=== PATIENT | female | born 1950 | race Caucasian/White ===

== ENCOUNTER 2025-08-13 07:45 | Inpatient (IN) ==
--- NOTE | 2025-07-23 15:41 | Anesthesiology Consultation ---
Date of Service July 23, 2025 Assessment & Plan (1) Encounter for pre-operative examination: - Infectious disease screening: Per assessment on 07/23/25- No known recent infectious disease contacts or current infectious disease symptoms. - Acceptable risk for surgery pending surgeon-ordered PCP preop evaluation ([facility]/naa Aguilart 07/28). Chart Review Chart Review: Patient NOT seen in Pre Admission Testing History Surgery Operation Date: 08/13/25 09:10 Proposed Procedures p Robotic Partial Colectomy, Possible Open Partial Colectomy - Antonio Naidu, , FACS Height/Weight Height: 5 ft 2.5 in Weight: 106.594 kg Allergies Allergy/AdvReac Type Severity Reaction Status Date / Time amoxicillin Allergy Mild Hives Verified 07/23/25 08:28 azithromycin Allergy Mild Hives Verified 07/23/25 08:28 benzonatate Allergy Mild Vomiting Verified 07/23/25 08:28 cefadroxil [From Duricef] Allergy Mild Hives Verified 07/23/25 08:28 cefazolin [From Ancef] Allergy Mild Hives Verified 07/23/25 08:28 diclofenac [From Cataflam] Allergy Mild Hives Verified 07/23/25 08:28 famotidine Allergy Mild Hypertensio Verified 07/23/25 08:28 n lactose Allergy Mild Diarrhea Verified 07/23/25 08:28 meperidine [From Demerol] Allergy Mild Hives Verified 07/23/25 08:28 sufentanil [From Sufenta] Allergy Mild Hives Verified 07/23/25 08:28 sulfamethoxazole Allergy Mild Hives Verified 07/23/25 08:28 [From Septra] trimethoprim [From Septra] Allergy Mild Hives Verified 07/23/25 08:28 wheat Allergy Mild Diarrhea Verified 07/23/25 08:28 brianna Allergy Mild Diarrhea Uncoded 07/23/25 08:28 ivp dye Allergy Mild Hives Uncoded 07/23/25 08:28 peteracillin Allergy Mild Hives Uncoded 07/23/25 08:28 Medications Home Medications Medication Instructions Recorded Confirmed Last Taken amlodipine 10 mg tablet 10 mg PO HS 07/22/25 07/23/25 Unknown cholecalciferol (vitamin D3) 50 50 mcg PO QAM 07/22/25 07/23/25 Unknown mcg (2,000 unit) capsule cinnamon bark 500 mg capsule 500 mg PO QAM 07/22/25 07/23/25 Unknown (Cinnamon) cyanocobalamin (vitamin B-12) 1,000 mcg PO QAM 07/22/25 07/23/25 Unknown 1,000 mcg tablet lisinopril 40 mg tablet 40 mg PO QAM 07/22/25 07/23/25 Unknown lutein 10 mg tablet 10 mg PO QPM 07/22/25 07/23/25 Unknown metronidazole 500 mg tablet 500 mg PO ONCE #3 tabs 07/22/25 Unknown multivitamin 1 tab PO DAILY 07/22/25 07/23/25 Unknown neomycin 500 mg tablet 500 mg PO ONCE #3 tabs 07/22/25 Unknown niacin 500 mg tablet 500 mg PO QAM 07/22/25 07/23/25 Unknown pantoprazole 40 mg tablet,delayed 40 mg PO QAM 07/22/25 07/23/25 Unknown release (Protonix) propranolol 20 mg tablet 20 mg PO QPM 07/22/25 07/23/25 Unknown zinc gluconate 30 mg tablet 30 mg PO QAM 07/22/25 07/23/25 Unknown Past Medical History Medical History Abnormality of testosterone Pt states previously high and had treatments x2 (~2019) Acid reflux Adenocarcinoma of cecum Recently colonoscopy 06/2025 ([facility]) Allergic sinusitis Anxiety Chronic back pain Fatty liver disease, nonalcoholic Hiatal hernia History of pneumonia (2019) After thyroid surgery complications HLD (hyperlipidemia) HTN (hypertension) Hx of deep venous thrombosis (2019) After thyroid surgery ([facility]) IVC filter placed/subsequently removed Hx pulmonary embolism (2019) After thyroid surgery ([facility]) IVC filter placed/subsequently removed Lipoma Below right knee Sleep disorder "sleep more than normal" Past Family History Family History Father Cancer Colorectal cancer Brother Clotting disorder Mother Hypertension Heart disease Past Surgical History Surgical History H/O section 1971, 1973 H/O colonoscopy (06/2025) [facility] H/O partial thyroidectomy (~2019) Left side (had thyroid nodules) Complications after surgery due to bleeding/hematoma- states she had to be intubated x 24 hours and had to go back to surgery to control bleeding, later had DVT/PE and had IVC Filter placed- states she had to be on oxygen x 6 months after the surgery H/O vein stripping (1989) Right leg History of anesthesia reaction Reports she was told after hyster that she was a "shallow breather" History of back surgery (1992) L4-L5 History of cataract surgery (2023) R/L History of postoperative nausea and vomiting Hx of hysterectomy (2022) S/P IVC filter (2019) [place] filter placed and removed ~6 months later S/P laparoscopic cholecystectomy (2010) Status post tubal ligation Social History Smoking Status: Never smoker Do You Dip or Chew Tobacco: No Hx Alcohol Use: Yes Alcohol type: beer and wine alcohol intake frequency: a few times a week Hx Substance Use: No substance use type: does not use Testing Laboratory Results 07/14/25 WBC 5.68 H/H 154/45.9 PLATELETS 195 SODIUM 140 POTASSIUM 4.0 CHLORIDE 107 CO2 31.0 BUN 14.0 CREATININE 0.91 GLUCOSE 101 Electrocardiogram Date: 07/14/25 SR at 65bpm. Septal myocardial infarction, probably old. Chest X-Ray Date: 07/14/25 The heart is borderline enlarged. Atherosclerotic and mildly tortuous thoracic aorta. Probable torturous vessel in the right paratracheal region. Mild partial eventration of the right hemidiaphragm. No consolidation or pleural effusion. Cholecystectomy. Impression: No acute findings.
--- NOTE | 2025-08-12 11:50 | History & Physical Report ---
Date of Service August 12, 2025 Assessment & Plan (1) Adenocarcinoma of cecum: Plan: Newly diagnosed adenocarcinoma of the cecum. Plan for robotic partial hemicolectomy, possible open Risks of the procedure were discussed to include but not limited to bleeding, in fection, open surgery, anastomotic leak, damage to surrounding structures, need for future more extensive surgery, failure to treat symptoms, and risk of anesthesia Preop risk assessment from PCP complete (2) Abdominal pain: (3) Hx of deep venous thrombosis: (4) Hx pulmonary embolism: (5) HTN (hypertension): (6) HLD (hyperlipidemia): (7) S/P IVC filter: (8) S/P laparoscopic cholecystectomy: (9) H/O section: (10) Hx of hysterectomy: History of Present Illness Chief Complaint: Colon cancer Primary Care Provider: Danisha Crenshaw Here for surgery. 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 She has been having right lower quadrant pain over the past few years. During the process she had imaging performed and showed a enlarged uterus and underwent hysterectomy and salpingo-oophorectomy. She states that there was 2 tiny cancerous cells, but did not require any further treatment. She continued to have the symptoms. She underwent a colonoscopy for the first time in a little over 10 years at [facility] and was noted to have an ulcerating tumor in her cecum. Biopsies were taken and revealed invasive adenocarcinoma. Besides the laparoscopic assisted hysterectomy, she has had a laparoscopic cholecystectomy, and 2 C-sections, no other abdominal surgeries. She has had a partial thyroidectomy. She does not follow with a sand mixer machine and is not on any blood thinners currently. She did have 2 small pulmonary emboli after her thyroid surgery and was on Coumadin for a period. She also had a [place] filter that was later removed. She does not note any changes in her bowel habits or blood in her stool. She does have frequent loose stools, usually related to gluten intake or dairy. Her pain appears more positional. Preop risk assessment from PCP completed. She had a CT scan of the chest ab domen pelvis which showed cecal thickening and some lymphadenopathy but no evidence of obvious metastatic disease. Her CEA was 2.52, slightly elevated. No other changes since last visit. Allergies Allergy/AdvReac Type Severity Reaction Status Date / Time amoxicillin Allergy Mild Hives Verified 07/23/25 08:28 azithromycin Allergy Mild Hives Verified 07/23/25 08:28 benzonatate Allergy Mild Vomiting Verified 07/23/25 08:28 cefadroxil [From Duricef] Allergy Mild Hives Verified 07/23/25 08:28 cefazolin [From Ancef] Allergy Mild Hives Verified 07/23/25 08:28 diclofenac [From Cataflam] Allergy Mild Hives Verified 07/23/25 08:28 famotidine Allergy Mild Hypertensio Verified 07/23/25 08:28 n lactose Allergy Mild Diarrhea Verified 07/23/25 08:28 meperidine [From Demerol] Allergy Mild Hives Verified 07/23/25 08:28 sufentanil [From Sufenta] Allergy Mild Hives Verified 07/23/25 08:28 sulfamethoxazole Allergy Mild Hives Verified 07/23/25 08:28 [From Septra] trimethoprim [From Septra] Allergy Mild Hives Verified 07/23/25 08:28 wheat Allergy Mild Diarrhea Verified 07/23/25 08:28 brianna Allergy Mild Diarrhea Uncoded 07/23/25 08:28 ivp dye Allergy Mild Hives Uncoded 07/23/25 08:28 peteracillin Allergy Mild Hives Uncoded 07/23/25 08:28 Home Medications Medication Instructions Recorded Confirmed Type amlodipine 10 mg tablet 10 mg PO HS 07/22/25 07/23/25 History cholecalciferol (vitamin D3) 50 50 mcg PO QAM 07/22/25 07/23/25 History mcg (2,000 unit) capsule cinnamon bark 500 mg capsule 500 mg PO QAM 07/22/25 07/23/25 History (Cinnamon) cyanocobalamin (vitamin B-12) 1,000 mcg PO QAM 07/22/25 07/23/25 History 1,000 mcg tablet lisinopril 40 mg tablet 40 mg PO QAM 07/22/25 07/23/25 History lutein 10 mg tablet 10 mg PO QPM 07/22/25 07/23/25 History metronidazole 500 mg tablet 500 mg PO ONCE #3 tabs 07/22/25 Rx multivitamin 1 tab PO DAILY 07/22/25 07/23/25 History neomycin 500 mg tablet 500 mg PO ONCE #3 tabs 07/22/25 Rx niacin 500 mg tablet 500 mg PO QAM 07/22/25 07/23/25 History pantoprazole 40 mg tablet,delayed 40 mg PO QAM 07/22/25 07/23/25 History release (Protonix) propranolol 20 mg tablet 20 mg PO QPM 07/22/25 07/23/25 History zinc gluconate 30 mg tablet 30 mg PO QAM 07/22/25 07/23/25 History Past Med/Surg History Problem List Encounter for pre-operative examination Adenocarcinoma of cecum Acid reflux Diarrhea Abdominal pain Vitamin D deficiency Medical History Abnormality of testosterone Pt states previously high and had treatments x2 (~2019) Acid reflux Adenocarcinoma of cecum Recently colonoscopy 06/2025 ([facility]) Allergic sinusitis Anxiety Chronic back pain Fatty liver disease, nonalcoholic Hiatal hernia History of pneumonia (2019) After thyroid surgery complications HLD (hyperlipidemia) HTN (hypertension) Hx of deep venous thrombosis (2019) After thyroid surgery ([facility]) IVC filter placed/subsequently removed Hx pulmonary embolism (2019) After thyroid surgery ([facility]) IVC filter placed/subsequently removed Lipoma Below right knee Sleep disorder "sleep more than normal" Surgical History H/O section 1971, 1973 H/O colonoscopy (06/2025) [facility] H/O partial thyroidectomy (~2019) Left side (had thyroid nodules) Complications after surgery due to bleeding/hematoma- states she had to be intubated x 24 hours and had to go back to surgery to control bleeding, later had DVT/PE and had IVC Filter placed- states she had to be on oxygen x 6 months after the surgery H/O vein stripping (1989) Right leg History of anesthesia reaction Reports she was told after hyster that she was a "shallow breather" History of back surgery (1992) L4-L5 History of cataract surgery (2023) R/L History of postoperative nausea and vomiting Hx of hysterectomy (2022) S/P IVC filter (2019) [place] filter placed and removed ~6 months later S/P laparoscopic cholecystectomy (2010) Status post tubal ligation Family History Father Cancer Colorectal cancer Brother Clotting disorder Mother Hypertension Heart disease Social History (Updated 07/07/25 @ 11:41 by Carol Alegre RN) Smoking Status: Never smoker Second Hand Exposure: No; Do You Dip or Chew Tobacco: No; Tobacco Cessation Education Requested by Patient: No Hx Alcohol Use: Yes Alcohol type: beer and wine Alcohol Intake Frequency: 2-4 x/Month Hx Substance Use: No Preferred Language: Lithuanian Communication Ability: Effective Wood Fence Installer Required: No Beliefs That Will Affect Care: None marital status: Current Living Situation: Spouse current occupational status: retired How many Children do You have: 2 Other Information That Helps Us Care for You: No Feels Safe at Home: Yes Safety Concerns: Feels Safe At This Time Diet: gluten free during the past year weight has: remained stable Assistive Devices: None Review of Systems Review of Systems: All systems reviewed & are unremarkable except as noted in HPI & below Physical Exam Constitutional: WD/WN, vitals as above + morbidly obese Respiratory: normal respiratory effort, lungs clear to auscultation Cardiovascular: RRR, no murmur, no edema Gastrointestinal (Abdomen): normal bowel sounds, soft, nontender, no hepatosplenomegaly Inspection/Auscultation: + abdominal surgical scar (Low vertical midline, port site scars) Results & Data Results & Data Laboratory Results Pathology showed invasive adenocarcinoma Diagnostic Findings CT report showed new asymmetric circumferential mural thickening of the cecum with mild Riki colic fat stranding and adjacent lymphadenopathy, no obvious metastatic disease. PG Care Time/CCT Total # of Minutes Spent Total Time Spent with Patient: Total time spent is greater than 50% in coordination of care (as documented) at patient's floor/unit and/or counseling patient: Coding Level of Care Code None Diagnoses Adenocarcinoma of cecum C18.0 Abdominal pain R10.9 Hx of deep venous thrombosis Z86.718 Hx pulmonary embolism Z86.711 HTN (hypertension) I10 HLD (hyperlipidemia) E78.5 S/P IVC filter Z95.828 S/P laparoscopic cholecystectomy Z90.49 H/O section Z98.891 Hx of hysterectomy Z90.710
[~2025-08-13 07:45] MED LIST: General Order Problem(s) SCH
[2025-08-13] MEDS: metroNIDAZOLE 500 MG/100 ML BAG IV SCH ×2 (08:11→20:45)
[2025-08-13] MEDS: LR 15ML/HR IV SCH (08:11)
[2025-08-13] MEDS ORDERED: ROCURONIUM BROMIDE 10 MG/ML 5 ML VIAL IV ONE ×2 (08:33→12:08)
[2025-08-13] MEDS ORDERED: PROPOFOL IV EMULSION 10 MG/ML 20 ML VIAL IV ONE (08:33)
[2025-08-13] MEDS ORDERED: LIDOCAINE 2% 2 ML VIAL/AMP(20MG/ML) INFIL ONE (08:33)
[2025-08-13] MEDS ORDERED: MIDAZOLAM HCL 1 MG/ML 2ML VIAL ONE (08:34)
[2025-08-13] MEDS ORDERED: KETAMINE HCL 10MG/ML SYR ONE (08:37)
[2025-08-13] MEDS ORDERED: diphenhydrAMINE 50 MG/ML VIAL ONE (08:38)
[2025-08-13] MEDS ORDERED: ONDANSETRON INJ 2 MG/ML 2 ML VIAL IV PRN (08:40)
[2025-08-13] MEDS ORDERED: PROMETHAZINE HCL 6.25 MG in SODIUM CHLORIDE 0.9% 50 ML IV PRN (08:40)
[2025-08-13] MEDS ORDERED: HYDROmorphone INJ 1 MG/ML SYRINGE IV PRN (08:40)
[2025-08-13] MEDS ORDERED: ATROPINE SULFATE 0.1 MG/ML 10ML SYR IV PRN (08:40)
[2025-08-13] MEDS ORDERED: SUGAMMADEX SODIUM 200 MG/2 ML VIAL IV ONE ×3 (08:46→12:55)
--- NOTE | 2025-08-13 09:10 | History & Physical Bridge Note ---
Date of Service August 13, 2025 History & Physical Bridge Note I have examined the patient, reviewed the History & Physical and in the interval since the performance of the History & Physical I have noted the following changes of clinical significance: no changes noted
[2025-08-13] MEDS ORDERED: ACETAMINOPHEN 1000 MG/100 ML IV IV ONE (09:35)
[2025-08-13] MEDS: CIPROFLOXACIN / D5W 400 MG/200 ML BAG IV SCH ×2 (09:42→22:15)
[2025-08-13] MEDS ORDERED: DEXAMETHASONE SOD INJ 4 MG/ML VIAL ONE (10:14)
[2025-08-13] MEDS ORDERED: ONDANSETRON INJ 2 MG/ML 2 ML VIAL ONE (10:36)
[2025-08-13] MEDS ORDERED: GLYCOPYRROLATE 0.2 MG/ML VIAL ONE (10:36)
[2025-08-13] MEDS ORDERED: HYDROmorphone INJ 2 MG/ML SYR/VIAL ONE (11:00)
[2025-08-13] MEDS ORDERED: LABETALOL HCL IV 5 MG/ML 20ML IV ONE (11:42)
[2025-08-13] MEDS: INDOCYANINE GREEN 25 MG VIAL INJ ONE (13:48)
[2025-08-13] MEDS ORDERED: KETOROLAC 30 MG/ML VIAL ONE (14:00)
[2025-08-13] MEDS: BUPIVACAINE LIPOSOME 1.3% 266 MG/20 ML VIAL ONE (14:04)
[2025-08-13] MEDS: BUPIVACAINE 0.5 % 5 MG/1 ML MPF 30ML VIAL ONE (14:05)
--- NOTE | 2025-08-13 14:08 | Post Operative Brief Note ---
PG Immediate Post Op with CF Date of Surgery August 13, 2025 Pre & Post Diagnosis Operation Date: 08/13/25 09:10 Pre-Op Diagnosis: Cecal Adenocarcinoma Post-Op Diagnosis: Cecal Adenocarcinoma I identified the patient and participated in the time-out.: Yes Procedure Operation Date: 08/13/25 09:10 Actual Procedures p Robotic Assisted Laparoscopic Right Hemicolectomy(Not Applicable) - Antonio Naidu DO, FACS Surgeon Antonio Naidu DO, RAGHU Hockey Instructor Ric Toro Estimated Blood Loss 25 Findings Consistent with Post-Op Diagnosis Palpable cecal adenocarcinoma. Bulky lymphadenopathy. Robotic right hemicolectomy with lateral to medial dissection performed. High ligation of ileocolic vascular bundle, right colic identified and divided with vessel sealer. Intracorporeal anastomosis performed. Exparel injected. Specimens Specimen Description: A. Right Hemicolectomy Drains Hardwick Catheter Anesthesia Type General Complications none Disposition Accompanied Patient To Recovery: No Disposition: Recovery Room
--- NOTE | 2025-08-13 14:45 | Cancer Operative Report ---
Post Operative Report Pre & Post Diagnosis Operation Date: 08/13/25 09:10 Pre-Op Diagnosis: Cecal Adenocarcinoma Post-Op Diagnosis: Cecal Adenocarcinoma I identified the patient and participated in the time-out.: Yes Procedure Operation Date: 08/13/25 09:10 Actual Procedures p Robotic Assisted Laparoscopic Right Hemicolectomy(Not Applicable) - Antonio Naidu DO, RAGHU Surgeon Antonio Naidu DO, RAGHU Web Offset Press Feeder Ric Toro Estimated Blood Loss 25 Findings Consistent with Post-Op Diagnosis Palpable cecal adenocarcinoma. Bulky lymphadenopathy. Robotic right hemicolectomy with lateral to medial dissection performed. High ligation of ileocolic vascular bundle, right colic identified and divided with vessel sealer. Intracorporeal anastomosis performed. Leak test negative. Good perfusion with ICG. Exparel injected. Specimens Right hemicolectomy Drains Hardwick catheter Anesthesia Type General Complications none Disposition Accompanied Patient To Recovery: No Disposition: Recovery Room Indications 74-year-old female with ulcerating tumor of her cecum on colonoscopy, pathology results showed adenocarcinoma. CT scan with some lymphadenopathy but no obvious metastatic disease. Plan for robotic partial colectomy, possible open. The risks of the procedure were discussed, all questions were answered, and the patient agreed to proceed with surgery as planned. Description of Procedure The patient had an antibiotic infused bowel prep overnight. The patient was pro perly identified, consented, and taken to the operating room where she was placed in the supine position. General endotracheal anesthesia was induced. SCDs and a safety belt were placed. Preoperative antibiotics were administered. A Hardwick catheter and an OG tube were placed. The patient's abdomen was prepped and draped in the standard sterile fashion. Surgical timeout was performed and all parties were in agreement that this was the correct patient and procedure to be performed and we continued as planned. An incision was made just above the umbilicus and to the left of midline. Veress needle was inserted and saline drop test confirmed entry to the abdomen. The abdomen was insufflated with carbon dioxide which the patient tolerated incident. Veress needle was removed and the abdomen was entered using the Optiview technique and a 5 mm camera. The introducer was removed and the abdomen inspected. No damage from initial trocar placement or Veress needle placement was identified. There were no significant abnormalities to the 4 quadrants of the abdomen. 8 mm robotic ports were then placed in the right lower quadrant and in the left upper quadrant, and a 12 mm port was placed in the left upper quadrant. An additional 5 mm hotel assistant manager port was placed in the left lower quadrant. The patient was placed in Trendelenburg position and rotated towards the left. The small bowel was swept away from the right lower quadrant. The robot was then docked and the camera and robotic instruments were inserted. The abdomen was inspected and there was no evidence of metastatic disease. The cecum was grasped and was quite firm and there was a palpable tumor at the base of the cecum. There was also foreshortened mesentery and some bulky lymphadenopathy along the ileocolic pedicle. This prevented us performing a medial to lateral dissection, so I then performed a lateral to medial dissection. The cecum was retracted medially and the white line of Toldt was taken down utilizing the vessel sealer device and blunt dissection. The hepatic flexure was mobilized. The terminal ileum was also mobilized off the lateral abdominal attachments. In the area of the tumor there was some inflammation and required more extensive dissection to free the tumor from its retroperitoneal attachments, but there was no gross invasion of the retroperitoneal structures. Multiple bulky lymph nodes were identified during this portion of the procedure. Once the colon was completely medialized and reached across the midline, we then returned to identify the ileocolic pedicle. The peritoneum was scored overlying this and the ileocolic vascular pedicle was isolated. High ligation of the ileocolic vessels was then performed using a white loaded robotic stapler. Hemostasis was excellent. I then proceeded to continue with the dissection of the mesentery utilizing the robotic vessel sealer. The right colic was somewhat small but was identified and divided with the vessel sealer. Hemostasis was good. I continued the dissection to the proximal transverse colon and to portion of the distal ileum. A blue loaded 60 mm robotic stapler was then utilized to divide the ileum 10 cm from the ileocolic valve. It was then used to divide the proximal transverse colon. The specimen was then placed in the left lower quadrant of the abdomen. ICG was then injected and the staple lines were inspected. There was a small corner of the colon staple line that appeared to lack adequate blood flow. This was then resected with an additional firing of the 60 mm blue loaded robotic stapler. A [id number] functional end and intracorporeal ileocolic anastomosis was then performed. Enterotomies were made in the small bowel and in the colon along the antimesenteric border approximately 8 cm from the staple lines. A blue loaded 60 mm robotic stapler was then inserted into the enterotomy and colotomy and fired towards the staple line creating the anastomosis. An additional 45 mm s tapler was then fired to lengthen the anastomosis. The common enterotomy was then closed. Stay sutures of 3-0 Vicryl suture were placed on the lateral corners to aid in retraction. A 2-0 absorbable V-Loc suture was then run in a simple running fashion to close the common enterotomy. This was then run back on itself with a running Lembert suture to provide the second layer. The anastomosis was palpated and appeared to be patent. ICG was again injected and the anastomosis appeared to have excellent blood flow. The anastomosis was then submerged under saline and no leak was identified. The right lower quadrant and right upper quadrant were irrigated and hemostasis appeared excellent. The mesenteric defect was not closed. The specimen was grasped through the hotel assistant manager port. Robotic surgery was ceased and the robot was undocked. The abdomen was allowed to collapse. The 12 mm port site was extended for several centimeters. An Bran wound protector was placed into the wound. The specimen was then grasped with a [place] and removed through the wound protector. The fascia and skin had to be extended for a few more centimeters to accommodate the large tumor and bulky adenopathy. The tumor was removed and passed off the table as specimen labeled right hemicolectomy. The Bran wound protector was removed and the fascia was closed using a #0 looped PDS suture. The wound was irrigated and hemostasis achieved. The fascia and incision site was injected with Exparel mixed with 0.5% Marcaine. The extraction site wound was irrigated and the incision was then closed with interrupted 3-0 Vicryl deep dermal sutures followed by 4-0 Monocryl running subcuticular suture. The remaining port sites were closed with 4-0 Monocryl deep dermal sutures. Dermabond was placed over the incisions. The Hardwick catheter was left in place and the OG tube was removed. The patient was extubated in the operating room and taken to the PACU where she recovered without apparent incident. All sponge, instrument, and needle counts were correct. The patient tolerated the procedure well. The colon specimen was sent to Pathology. The physician's hotel assistant manager was present and scrubbed for the entirety of the case. He was critical in positioning the patient, prepping and draping, retraction and exposure, exchange and placement of the robotic instruments, driving the laparoscope, resection of the specimen and creation of the anastomosis, closure of the incisions, and placement of the dressings. Colon Resection Operation performed with curative intent: Yes Tumor Location: Cecum Extent of colon and vascular resection: Right hemicolectomy ileocolic, R colic (if present) I attest to the content of the Intraoperative Record and any orders documented therein. Any exceptions are noted below.
[2025-08-13] MEDS ORDERED: MoRPHine SULFATE 4 MG/ML 1 ML CARP\\VIAL IV PRN (16:16)
--- NOTE | 2025-08-13 16:16 | Anesthesiology Progress Note ---
Date of Service August 13, 2025 Anesthesia Post Procedure Vital Signs Vital Signs: Temp Pulse Pulse Pulse Resp BP Pulse Ox 08/13/25 15:48 80 20 97 08/13/25 15:43 80 12 130/61 97 08/13/25 15:35 36.6 C 84 22 130/71 97 08/13/25 15:25 80 18 138/67 97 08/13/25 15:15 82 20 133/68 98 08/13/25 15:05 78 16 130/73 95 08/13/25 14:55 83 18 122/75 96 08/13/25 14:45 82 16 141/74 H 98 08/13/25 14:35 81 16 144/75 H 97 08/13/25 14:30 83 18 97 08/13/25 14:25 37 C 79 14 139/64 93 08/13/25 08:05 37 C 93 H 20 139/78 98 O2 Del Method O2 Flow Rate FiO2 08/13/25 15:48 08/13/25 15:43 Oxymask 4 08/13/25 15:35 Oxymask 4 08/13/25 15:25 Oxymask 4 08/13/25 15:15 Oxymask 4 08/13/25 15:05 CPAP 40 08/13/25 14:55 CPAP 40 08/13/25 14:45 CPAP 40 08/13/25 14:35 CPAP 08/13/25 14:30 40 08/13/25 14:25 Oxymask 10 08/13/25 08:05 Room Air Transfer of Care Handoff Completed per policy Notes Mental Status: alert / awake / arousable and participated in evaluation Patient Amnestic to Procedure: Yes Nausea / Vomiting: adequately controlled Pain: adequately controlled Airway Patency, RR, SpO2: stable & adequate BP & HR: stable & adequate Hydration State: stable & adequate Anesthetic Complications: no major complications apparent
[2025-08-13] MEDS: LACTATED RINGER'S 1,000 ML IV SCH (16:25)
[2025-08-13] MEDS: ACETAMINOPHEN 1,000 MG/100 ML VIAL IV SCH (17:22)
[2025-08-13] MEDS ORDERED: HYDROCORTISONE 1% CRM 30 GM TUBE EXT PRN (17:42)
--- NOTE | 2025-08-13 17:45 | Hospitalist Consultation ---
Date of Consultation August 13, 2025 Assessment & Plan (1) Adenocarcinoma of cecum: (2) Acute postoperative pulmonary insufficiency: (3) HTN (hypertension): (4) HLD (hyperlipidemia): Plan Timmy is a 74F with a PMHx chronic eosinophilia, HLD managed with diet, GERD, tremors, hypertension and history of PE who presents to the hospital for elective hemicolectomy secondary to mass concerning for adenocarcinoma. medicine consulted for medical management #Adenocarcinoma of the cecum | Hx of PE status post robotic assisted laparoscopic right hemicolectomy with Dr. Naidu on 08/13 Antibiotics/dispo planning/pain control per primary team Patient does have a history of PEdiscussed with surgery plan for initiation of chemical DVT prophylaxis on 08/14 AM CBC and BMPwe will continue to follow #Postop pulmonary insufficiencycurrently on 3 L of oxy mask, with concerns for snoring in PACU. Does not use a CPAP at baseline, reports she has refused sleep studies in the past. Baseline is room air Continue incentive spirometry Wean oxygen as able, goal greater than 92% #Hypertension Continue amlodipine Hold lisinopril pending a.m. labs #Tremorcontinue propranolol #Chronic eosinophilia Will continue daily allergy medicine As needed topical hydrocortisone during cream #HLDthis is diet controlled Thank you for allowing us to participate in the care of this patient, please reach out with any questions or concerns. Hospital medicine will continue to follow Supervising Physician Co-Signing Physician Notes I have reviewed vital signs, chart notes, labs and imaging. I have personally seen, evaluated and examined the patient. I have also discussed the management of the patient with the CARMELITA and I agree with the exam findings documented in the history and physical examination and the documented assessment and plan unless otherwise stated below. Awake alert Ox4 at bedside. Little bit increased abdominal pain after eating dinner, no nausea/emesis Lungs CTA bilaterally, hypoventilatory. Heart reg no mrg. LE wwp some RLE edema > L which she says is chronic Agree with assessment and plan above History of Present Illness Reason for Consultation: medical management Requesting Physician: Dr. Naidu Attending Physician: Antonio Naidu, , FACS History of Present Illness Timmy is a 74F with a PMHx chronic eosinophilia, HLD managed with diet, GERD, tremors, hypertension and history of PE who presents to the hospital for elective hemicolectomy secondary to mass concerning for adenocarcinoma. She was seen postoperatively in room 279 and complains of being tired. She denies using a CPAP machine, nursing reports that this was ordered because she was snoring and PACU. She reports that she was taking allergy medicine for the last week while she has been on antibiotics preoperatively because of her chronic hives, normally she uses [id number] cream to help with the hives. Would like to be continued on allergy medicine while she is here. She reports having diarrhea from the antibiotic she had to take what she cannot remember which ones. She does endorse a dairy allergy and would like to have a lactose-free diet while she is here Allergies Allergy/AdvReac Type Severity Reaction Status Date / Time amoxicillin Allergy Mild Hives Verified 08/13/25 08:07 azithromycin Allergy Mild Hives Verified 08/13/25 08:07 benzonatate Allergy Mild Vomiting Verified 08/13/25 08:07 cefadroxil [From Duricef] Allergy Mild Hives Verified 08/13/25 08:07 cefazolin [From Ancef] Allergy Mild Hives Verified 08/13/25 08:07 diclofenac [From Cataflam] Allergy Mild Hives Verified 08/13/25 08:07 famotidine Allergy Mild Hypertensio Verified 08/13/25 08:07 n lactose Allergy Mild Diarrhea Verified 08/13/25 08:07 meperidine [From Demerol] Allergy Mild Hives Verified 08/13/25 08:07 sufentanil [From Sufenta] Allergy Mild Hives Verified 08/13/25 08:07 sulfamethoxazole Allergy Mild Hives Verified 08/13/25 08:07 [From Septra] trimethoprim [From Septra] Allergy Mild Hives Verified 08/13/25 08:07 wheat Allergy Mild Diarrhea Verified 08/13/25 08:07 brianna Allergy Mild Diarrhea Uncoded 08/13/25 08:08 ivp dye Allergy Mild Hives Uncoded 08/13/25 08:08 peteracillin Allergy Mild Hives Uncoded 08/13/25 08:08 Home Medications Medication Instructions Recorded Confirmed Type amlodipine 10 mg tablet 10 mg PO HS 07/22/25 08/13/25 History cholecalciferol (vitamin D3) 50 50 mcg PO QAM 07/22/25 08/13/25 History mcg (2,000 unit) capsule cinnamon bark 500 mg capsule 500 mg PO QAM 07/22/25 08/13/25 History (Cinnamon) cyanocobalamin (vitamin B-12) 1,000 mcg PO QAM 07/22/25 08/13/25 History 1,000 mcg tablet lisinopril 40 mg tablet 40 mg PO QAM 07/22/25 08/13/25 History lutein 10 mg tablet 10 mg PO QPM 07/22/25 08/13/25 History metronidazole 500 mg tablet 500 mg PO ONCE #3 tabs 07/22/25 08/13/25 Rx multivitamin 1 tab PO DAILY 07/22/25 08/13/25 History neomycin 500 mg tablet 500 mg PO ONCE #3 tabs 07/22/25 08/13/25 Rx niacin 500 mg tablet 500 mg PO QAM 07/22/25 08/13/25 History pantoprazole 40 mg tablet,delayed 40 mg PO QAM 07/22/25 08/13/25 History release (Protonix) propranolol 20 mg tablet 20 mg PO QPM 07/22/25 08/13/25 History zinc gluconate 30 mg tablet 30 mg PO QAM 07/22/25 08/13/25 History Patient History Medical History Abnormality of testosterone Pt states previously high and had treatments x2 (~2019) Acid reflux Adenocarcinoma of cecum Recently colonoscopy 06/2025 ([facility]) Allergic sinusitis Anxiety Chronic back pain Fatty liver disease, nonalcoholic Hiatal hernia History of pneumonia (2019) After thyroid surgery complications HLD (hyperlipidemia) HTN (hypertension) Hx of deep venous thrombosis (2019) After thyroid surgery ([facility]) IVC filter placed/subsequently removed Hx pulmonary embolism (2019) After thyroid surgery ([facility]) IVC filter placed/subsequently removed Lipoma Below right knee Sleep disorder "sleep more than normal" Surgical History H/O section 1971, 1973 H/O colonoscopy (06/2025) [facility] H/O partial thyroidectomy (~2019) Left side (had thyroid nodules) Complications after surgery due to bleeding/hematoma- states she had to be intubated x 24 hours and had to go back to surgery to control bleeding, later had DVT/PE and had IVC Filter placed- states she had to be on oxygen x 6 months after the surgery H/O vein stripping (1989) Right leg History of anesthesia reaction Reports she was told after hyster that she was a "shallow breather" History of back surgery (1992) L4-L5 History of cataract surgery (2023) R/L History of postoperative nausea and vomiting Hx of hysterectomy (2022) S/P IVC filter (2019) Blanch filter placed and removed ~6 months later S/P laparoscopic cholecystectomy (2010) Status post tubal ligation Family History Father Cancer Colorectal cancer Brother Clotting disorder Mother Hypertension Heart disease Social History Smoking Status: Never smoker Second Hand Exposure: No; Do You Dip or Chew Tobacco: No; Tobacco Cessation Education Requested by Patient: No Hx Alcohol Use: No Hx Substance Use: No Preferred Language: Armenian Communication Ability: Effective Bulb Grader Required: No Beliefs That Will Affect Care: None marital status: Current Living Situation: Spouse current occupational status: retired How many Children do You have: 2 Other Information That Helps Us Care for You: No Feels Safe at Home: Yes Safety Concerns: Feels Safe At This Time Diet: gluten free during the past year weight has: remained stable Assistive Devices: Glasses Review of Systems Review of Systems: All systems reviewed & are unremarkable except as noted in Subjective Physical Exam Physical Exam: General: NAD, VS as above Resp: normal respiratory effort, lungs diminished in the bases anteriorly, weaned down to 3 L CV: RRR, no murmur, Abd: soft, hypoactive bowel signs, incisions with skin glue clean dry and intact Extremities: Moves all extremities, no edema, able to wiggle toes bilaterally Neuro: A&O x3, Skin: intact, does have allergic spot behind right ear Results & Data Results & Data Vital Signs (Past 12 Hours) Vital Signs Temp Pulse Pulse Pulse Resp BP Pulse Ox 08/13/25 17:18 98.1 F 84 16 137/72 97 08/13/25 16:56 97.9 F 83 18 137/72 96 08/13/25 16:43 97.9 F 83 18 137/72 96 08/13/25 16:16 97.9 F 82 18 131/70 96 08/13/25 15:48 80 20 97 08/13/25 15:43 80 12 130/61 97 08/13/25 15:35 97.9 F 84 22 130/71 97 08/13/25 15:25 80 18 138/67 97 08/13/25 15:15 82 20 133/68 98 08/13/25 15:05 78 16 130/73 95 08/13/25 14:55 83 18 122/75 96 08/13/25 14:45 82 16 141/74 H 98 08/13/25 14:35 81 16 144/75 H 97 08/13/25 14:30 83 18 97 08/13/25 14:25 98.6 F 79 14 139/64 93 08/13/25 08:05 98.6 F 93 H 20 139/78 98 O2 Del Method O2 Flow Rate FiO2 08/13/25 17:18 Oxymask 4 08/13/25 16:56 Oxymask 4 08/13/25 16:43 Oxymask 4 08/13/25 16:16 Oxymask 4 08/13/25 15:48 08/13/25 15:43 Oxymask 4 08/13/25 15:35 Oxymask 4 08/13/25 15:25 Oxymask 4 08/13/25 15:15 Oxymask 4 08/13/25 15:05 CPAP 40 08/13/25 14:55 CPAP 40 08/13/25 14:45 CPAP 40 08/13/25 14:35 CPAP 08/13/25 14:30 40 08/13/25 14:25 Oxymask 10 08/13/25 08:05 Room Air PG Care Time/CCT Total # of Minutes Spent Total Time Spent with Patient: Total time spent is greater than 50% in coordination of care (as documented) at patient's floor/unit and/or counseling patient: Coding Level of Care Code 46984 IN/OBS CONSULT LVL 4,60M Diagnoses Adenocarcinoma of cecum C18.0 Acute postoperative pulmonary insufficiency J95.2 HTN (hypertension) I10 HLD (hyperlipidemia) E78.5
[2025-08-13] MEDS ORDERED: Nursing to Pharmacy Communication SCH (19:45)
[2025-08-13] MEDS: CALCIUM CARBONATE 500 MG CHEWABLE TAB PO PRN (20:46)
[2025-08-13] MEDS: PROPRANOLOL HCL 20 MG TAB PO SCH (20:46)
[2025-08-13] MEDS: FEXOFENADINE HCL 180 MG TAB PO SCH (20:47)
[2025-08-14 08:15] LABS: Hematocrit (blood only) 40.9 % (37.0-47.0); Hemoglobin 13.3 g/dl (12.0-16.0); Immature Granulocytes # (auto) 0.03 K/uL (0.01-0.20); Immature Granulocytes % (auto) 0.3 %; Mean Corpuscular Hemoglobin 30.9 pg (25.0-34.0); Mean Corpuscular Volume 94.9 fL (80.0-100.0); Platelet Count 182 K/uL (130-400); RDW Standard Deviation 46.9 fL (36.4-46.3); Red Blood Count 4.31 M/uL (4.20-5.40); White Blood Count 10.38 K/ul (4.8-10.8)
[2025-08-14 08:31] LABS: Anion Gap 6.0 (3-11); Blood Urea Nitrogen 18.0 mg/dl (6-23); Calcium 8.4 mg/dl (8.6-10.3); Carbon Dioxide 27.0 mmol/L (21-32); Chloride 107.0 mmol/L (98-107); Creatinine Clr Calc Pharmacy 52.8 ml/min; Glucose 102.0 mg/dl (70-99(Fasting)); Potassium 4.1 mmol/L (3.5-5.1); Sodium 140.0 mmol/L (136-145)
--- NOTE | 2025-08-14 08:34 | Surgery Progress Note ---
Date of Service August 14, 2025 Assessment & Plan (1) Adenocarcinoma of cecum: Plan: POD#1Robotic Assisted Laparoscopic Right Hemicolectomy WBC 10.3, Hbg 13.3, K 4.1, Cr 1. VSS Pt with expected post op discomfort, will continue current regimen and add in some toradol She is tolerating clears without n/v, she is passing kylah. Will trial fulls Hbg stable, will start DVT prophylaxis with 40mg lovenox daily D/c Hardwick catheter Encourage ambulation, pulmonary toilet, OOB 24 hours post op abx to complete today Admission and Anticipated Discharge Date Admission Date: August 13, 2025 Supervising Physician Co-Signing Physician Notes Patient seen and examined, labs reviewed, agree with above. POD #1 robotic ri ght hemicolectomy with intracorporeal anastomosis for cecal adenocarcinoma. Overall doing well. Moderate abdominal pain, mostly controlled with medications. Tolerating liquids. Did pass a little flatus yesterday. Had the catheter removed this morning but is not voided yet. On exam she is afebrile with stable vitals. Her abdomen is soft, appropriately tender to palpation, incisions with Dermabond, no infection. WBC normal, H&H stable. Pathology pending. Advance to full liquids, ambulation, out of bed to chair, I-S. Lovenox started this morning. Appreciate medicine consultation. Await return of bowel function. Subjective Patient reports she didn't sleep well last night with all the check ins. Has pain, somewhat managed on current regimen. She is tolerating liquids without nausea/vomiting. She is passing gas. Physical Exam Physical Exam: awake/alert, no distress Respiratory: normal respiratory effort Gastrointestinal (Abdomen): Percussion/Palpation: + abdomen tender (colette- incisional discomfort to palpation) and abdomen soft incisions are c/d/i, with dermabond Results & Data Vital Signs (Past 12 Hours) Vital Signs Temp Pulse Pulse Pulse Resp BP Pulse Ox 08/14/25 08:21 98.6 F 76 18 144/77 H 94 08/14/25 07:27 72 08/14/25 02:55 98.4 F 73 18 131/75 94 08/13/25 22:35 98.1 F 80 18 155/79 H 96 08/13/25 22:17 81 08/13/25 21:50 O2 Del Method O2 Flow Rate 08/14/25 08:21 Oxymask 08/14/25 07:27 08/14/25 02:55 Oxymask 2.5 08/13/25 22:35 Oxymask 2.5 08/13/25 22:17 08/13/25 21:50 Oxymask 2.5 PG Care Time/CCT Total # of Minutes Spent Total Time Spent with Patient: Total time spent is greater than 50% in coordination of care (as documented) at patient's floor/unit and/or counseling patient: Coding Level of Care Code 38817 Post Operative Follow-Up Diagnoses Adenocarcinoma of cecum C18.0
[2025-08-14] MEDS: ENOXAPARIN INJ 40 MG/0.4 ML SYR SQ SCH (09:27)
--- NOTE | 2025-08-14 10:54 | Hospitalist Progress Note ---
"Date of Service August 14, 2025 Assessment & Plan (1) Adenocarcinoma of cecum: (2) Acute postoperative pulmonary insufficiency: (3) HTN (hypertension): (4) HLD (hyperlipidemia): Plan Timmy is a 74F with a PMHx chronic eosinophilia, HLD managed with diet, GERD, tremors, hypertension and history of PE who presents to the hospital for elective hemicolectomy secondary to mass concerning for adenocarcinoma. medicine consulted for medical management #Adenocarcinoma of the cecum | Hx of PE status post robotic assisted laparoscopic right hemicolectomy with Dr. Naidu on 08/13 Antibiotics/dispo planning/pain control per primary team Patient does have a history of PEdiscussed with surgery plan for initiation of chemical DVT prophylaxis on 08/14. Continue Lovenox morning labs reviewed and are stable patient reports she did not sleep wellfrom a medicine standpoint will be stable to downgrade to medical #Postop pulmonary insufficiencycurrently on 3 L of oxy mask, with concerns for snoring in PACU. Does not use a CPAP at baseline, reports she has refused sleep studies in the past. Baseline is room air Continue incentive spirometry Wean oxygen as able, goal greater than 92% #Hypertension Continue amlodipine okay to resume lisinopril #Tremorcontinue propranolol #Chronic eosinophilia Will continue daily allergy medicine - discussed with patient recommend continuing being given any antibiotics. As needed topical hydrocortisone during cream #HLDthis is diet controlled Thank you for allowing us to participate in the care of this patient, please reach out with any questions or concerns. Hospital medicine will Sign off. Admission and Anticipated Discharge Date Admission Date: August 13, 2025 Supervising Physician Co-Signing Physician Notes I did not see or examine the patient. I verified all simeno points and agree with Maria Antonia Carroll PA-C with the following exceptions and/or additions: if hypoxia not improving overnight recommend CXR Subjective Patient seen this afternoon sitting up in the chair, present at bedside. Having pain that does get a little bit worse after eating but overall she feels better sitting up. Reports that she did not sleep well last night. She has been working to wean off her oxygen. Denies cough. Has passed gas since surgery, no bowel movement yet. Tolerating clear liquids and will be advanced to full liquids today per surgery Has not noticed any worsening of her allergic's spots Telemetry sinus rhythm 70s and 80s Review of Systems Review of Systems: All systems reviewed & are unremarkable except as noted in Subjective Physical Exam Physical Exam: General: NAD, VS as above Resp: normal respiratory effort, clear to auscultation on 1.5 L nasal cannula CV: RRR, no murmur, Extremities: Moves all extremities Neuro: A&O x3, Skin: intact, does have allergic spot behind right ea not worseningr Results & Data Results & Data Vital Signs (Past 12 Hours) Vital Signs Temp Pulse Pulse Pulse Resp BP Pulse Ox 08/14/25 10:27 08/14/25 08:21 98.6 F 76 18 144/77 H 94 08/14/25 07:27 72 08/14/25 02:55 98.4 F 73 18 131/75 94 O2 Del Method O2 Flow Rate 08/14/25 10:27 Nasal Cannula 1.5 08/14/25 08:21 Oxymask 08/14/25 07:27 08/14/25 02:55 Oxymask 2.5 Laboratory Results CBC and chemistry reviewed PG Care Time/CCT Total # of Minutes Spent Total Time Spent with Patient: Total time spent is greater than 50% in coordination of care (as documented) at patient's floor/unit and/or counseling patient: Coding Level of Care Code 28321 SUB INP/OBS CARE 2/35MIN Diagnoses Adenocarcinoma of cecum C18.0 Acute postoperative pulmonary insufficiency J95.2 HTN (hypertension) I10 HLD (hyperlipidemia) E78.5"
[2025-08-14] MEDS: KETOROLAC TROMETHAMINE 15 MG/ML VIAL IV SCH (11:10)
[2025-08-15 07:00] LABS: Hematocrit (blood only) 41.0 % (37.0-47.0); Hemoglobin 13.4 g/dl (12.0-16.0); Immature Granulocytes # (auto) 0.04 K/uL (0.01-0.20); Immature Granulocytes % (auto) 0.4 %; Mean Corpuscular Hemoglobin 31.3 pg (25.0-34.0); Mean Corpuscular Volume 95.8 fL (80.0-100.0); Platelet Count 166 K/uL (130-400); RDW Standard Deviation 48.3 fL (36.4-46.3); Red Blood Count 4.28 M/uL (4.20-5.40); White Blood Count 9.49 K/ul (4.8-10.8)
[2025-08-15 07:36] LABS: Anion Gap 6.0 (3-11); Blood Urea Nitrogen 13.0 mg/dl (6-23); Calcium 8.5 mg/dl (8.6-10.3); Carbon Dioxide 24.0 mmol/L (21-32); Chloride 111.0 mmol/L (98-107); Creatinine Clr Calc Pharmacy 63.3 ml/min; Glucose 99.0 mg/dl (70-99(Fasting)); Potassium 3.8 mmol/L (3.5-5.1); Sodium 141.0 mmol/L (136-145)
--- NOTE | 2025-08-15 12:01 | Surgery Progress Note ---
Date of Service August 15, 2025 Assessment & Plan (1) H/O right hemicolectomy: Plan: POD #2 robotic right hemicolectomy, doing well, good return of bowel function Advance to low fiber diet Transition to oral acetaminophen, scheduled Start oral Celebrex Ambulation, I-S, out of bed to chair, continue Lovenox [facility] surgery covering over the weekend Potential discharge over the weekend, if not early next week if continues to progress Wound care instructions and activity restrictions reviewed Follow-up with me in 2 weeks Pathology pending Admission and Anticipated Discharge Date Admission Date: August 13, 2025 Subjective POD #2 robotic right hemicolectomy with intracorporeal anastomosis for cecal cancer. Doing well, pain improving and controlled with medications. Had a bowel movement. Did walk just recently, felt a little flushed and diaphoretic afterwards. Otherwise afebrile, tolerating liquids, not a large appetite yet. Physical Exam Constitutional: WD/WN, vitals as above + morbidly obese Respiratory: normal respiratory effort, lungs clear to auscultation Cardiovascular: RRR, no murmur, no edema Gastrointestinal (Abdomen): Inspection/Auscultation: + abdominal surgical incision (Healing well) Percussion/Palpation: + abdomen tender (Appropriately tender to palpation) and abdomen soft; no guarding and abdomen not rigid Results & Data Vital Signs (Past 12 Hours) Vital Signs Temp Pulse Pulse Pulse Resp BP Pulse Ox 08/15/25 08:46 36.6 C 72 18 139/92 94 08/15/25 08:00 72 08/15/25 02:38 36.8 C 72 18 115/72 92 O2 Del Method O2 Flow Rate 08/15/25 08:46 Nasal Cannula 3 08/15/25 08:00 08/15/25 02:38 Nasal Cannula 3 Laboratory Results Laboratory Results - last 24 hr 08/15/25 06:36 WBC 9.49 RBC 4.28 Hgb 13.4 Hct 41.0 MCV 95.8 MCH 31.3 MCHC 32.7 RDW Std Deviation 48.3 H RDW Coeff of Parviz 13.7 Plt Count 166 MPV 12.7 H Immature Gran % (Auto) 0.4 Neut % (Auto) 65.3 Lymph % (Auto) 18.7 Trego % (Auto) 8.5 Eos % (Auto) 6.7 Baso % (Auto) 0.4 Neut # (Auto) 6.19 Lymph # (Auto) 1.77 [place] # (Auto) 0.81 H Eos # (Auto) 0.64 H Baso # (Auto) 0.04 Immature Gran # (Auto) 0.04 Sodium 141 Potassium 3.8 Chloride 111 H Carbon Dioxide 24 Anion Gap 6 BUN 13 Creatinine 0.91 Est Cr Clr Drug Dosing 63.3 eGFR 65.79 BUN/Creatinine Ratio 14.3 Glucose 99 Calcium 8.5 L PG Care Time/CCT Total # of Minutes Spent Total Time Spent with Patient: Total time spent is greater than 50% in coordination of care (as documented) at patient's floor/unit and/or counseling patient: Coding Level of Care Code 06390 Post Operative Follow-Up Diagnoses H/O right hemicolectomy Z90.49
[2025-08-15] MEDS: ACETAMINOPHEN 500 MG TAB PO SCH (13:41)
[2025-08-15] MEDS: CELECOXIB 100 MG CAP PO SCH (13:42)
--- NOTE | 2025-08-15 14:47 | XRay Report ---
XR chest 2V PA/lateral CLINICAL HISTORY: Post operative Hypoxia COMPARISON STUDY: None FINDINGS: There is moderate cardiomegaly with pulmonary vascular congestion. There is mild elevation of the right hemidiaphragm. There is minimal atelectasis in the lung bases. No consolidation or pleur al effusion seen. No pneumothorax. IMPRESSION: Mild CHF and minimal atelectasis in the lung bases. ACT 112: Negative or not required by law. Electronically signed by: Antonio Fowler M.D. 08/15/2025 2:46 PM
--- NOTE | 2025-08-15 14:57 | Hospitalist Progress Note ---
"Date of Service August 15, 2025 Assessment & Plan (1) Acute postoperative pulmonary insufficiency: (2) Adenocarcinoma of cecum: Plan Timmy is a 74F with a PMHx chronic eosinophilia, HLD managed with diet, GERD, tremors, hypertension and history of PE who presents to the hospital for elective hemicolectomy secondary to mass concerning for adenocarcinoma. medicine consulted for medical management #Adenocarcinoma of the cecum | Hx of PE status post robotic assisted laparoscopic right hemicolectomy with Dr. Naidu on 08/13 Antibiotics/dispo planning/pain control per primary team Patient does have a history of PEdiscussed with surgery plan for initiation of chemical DVT prophylaxis on 08/14. Continue Lovenox #Acute Hypoxic Respiratory Failure/ Post-op hypoxia: currently on 3 L of oxy mask, with concerns for snoring in PACU. Does not use a CPAP at baseline, reports she has refused sleep studies in the past. Baseline is room air Continue incentive spirometry Wean oxygen as able, goal greater than 92% - CXR shows Mild CHF and minimal atelectasis in the lung bases. Consider Lasix 20mg tomorrow morning as patient didn't wanted to get some sleep as she couldn't sleep well after the surgery.. #Hypertension Continue amlodipine Continue lisinopril #Tremorcontinue propranolol #Chronic eosinophilia Will continue daily allergy medicine As needed topical hydrocortisone during cream #HLDthis is diet controlled Admission and Anticipated Discharge Date Admission Date: August 13, 2025 Supervising Physician Co-Signing Physician Notes Attending attestation Pt seen and examined in concert with Dr. Short. In agreement with the documented findings as noted in the resident documentation with any exceptions or additions as noted here. Ongoing shortness of breath postoperative well controlled on 3L NC with some mild nonproductive cough. Adherent to incentive spirometry therapy VS as noted. On examination, S1/S2 nl RRR no MCG. Bibasilar coarse breath sounds appreciated. Acute hypoxic respiratory failure - likely multifactorial in the setting of postoperative, habitus, h/o suspected DENI - continue O2 per protocol. CXR today shows some fluid overload and atelectasis. Will d/w patient re: IV furosemide tonight vs. tomorrow AM and diurese. Hypertension - continue amlodipine, lisinopril Else see resident documentation as noted. Subjective Patient lying on bed with the NC on 3L. POD #2 robotic right hemicolectomy with intracorporeal anastomosis for cecal cancer. Doing well, pain improving and controlled with medications. Had a bowel movement. On liquid diet. Has been trying ambulating. Review of Systems Review of Systems: As per HPI. Physical Exam Constitutional: WD/WN, vitals as above + morbidly obese Respiratory: normal respiratory effort, lungs clear to auscultation Cardiovascular: RRR, no murmur, no edema Gastrointestinal (Abdomen): Inspection/Auscultation: + abdominal surgical incision (Healing well) Percussion/Palpation: + abdomen tender (Appropriately tender to palpation) and abdomen soft; no guarding and abdomen not rigid Results & Data Results & Data Vital Signs (Past 12 Hours) Vital Signs Temp Pulse Pulse Resp BP Pulse Ox O2 Del Method 08/15/25 12:48 37.1 C 72 17 143/84 H 94 Room Air 08/15/25 08:46 36.6 C 72 18 139/92 94 Nasal Cannula 08/15/25 08:00 72 O2 Flow Rate 08/15/25 12:48 08/15/25 08:46 3 08/15/25 08:00 Resident Activity Tracking Resident Involvement: Resident Care Provided Care Provided: Adult Hospital Medicine"
[2025-08-16 06:52] LABS: Hematocrit (blood only) 38.0 % (37.0-47.0); Hemoglobin 12.6 g/dl (12.0-16.0); Immature Granulocytes # (auto) 0.02 K/uL (0.01-0.20); Immature Granulocytes % (auto) 0.3 %; Mean Corpuscular Hemoglobin 32.2 pg (25.0-34.0); Mean Corpuscular Volume 97.2 fL (80.0-100.0); Platelet Count 153 K/uL (130-400); RDW Standard Deviation 47.3 fL (36.4-46.3); Red Blood Count 3.91 M/uL (4.20-5.40); White Blood Count 6.77 K/ul (4.8-10.8)
[2025-08-16 07:44] LABS: Anion Gap 6.0 (3-11); Blood Urea Nitrogen 17.0 mg/dl (6-23); Calcium 8.5 mg/dl (8.6-10.3); Carbon Dioxide 28.0 mmol/L (21-32); Chloride 108.0 mmol/L (98-107); Creatinine Clr Calc Pharmacy 60.1 ml/min; Glucose 97.0 mg/dl (70-99(Fasting)); Potassium 3.7 mmol/L (3.5-5.1); Sodium 142.0 mmol/L (136-145)
--- NOTE | 2025-08-16 12:04 | Surgery Progress Note ---
Date of Service August 16, 2025 Assessment & Plan (1) Adenocarcinoma of cecum: Plan: good progress medicine addressing some pulm issues OK to give lasix as needed if medically cleared possible DC in AM Admission and Anticipated Discharge Date Admission Date: August 13, 2025 Subjective doing well having BVMs ambulating well regular diet Review of Systems Constitutional: no fever and no chills Respiratory: no dyspnea Cardiovascular: no chest pain Gastrointestinal: no nausea, no vomiting and no change in bowel habits Neurologic: no localized weakness Psychiatric: no behavioral changes Physical Exam Constitutional: WD/WN, vitals as above Respiratory: normal respiratory effort Results & Data Vital Signs (Past 12 Hours) Vital Signs Temp Pulse Pulse Resp BP Pulse Ox O2 Del Method 08/16/25 10:14 Nasal Cannula 08/16/25 09:05 64 08/16/25 08:25 36.6 C 65 18 148/84 H 94 Nasal Cannula 08/16/25 02:12 36.3 C L 59 L 18 120/77 94 Nasal Cannula O2 Flow Rate 08/16/25 10:14 08/16/25 09:05 08/16/25 08:25 08/16/25 02:12 2
[2025-08-16] MEDS: FUROSEMIDE INJ 20 MG/2 ML VIAL IV ONE (12:15)
--- NOTE | 2025-08-16 13:29 | Hospitalist Progress Note ---
"Date of Service August 16, 2025 Assessment & Plan (1) Acute postoperative pulmonary insufficiency: (2) Adenocarcinoma of cecum: Plan Timmy is a 74F with a PMHx chronic eosinophilia, HLD managed with diet, GERD, tremors, hypertension and history of PE who presents to the hospital for elective hemicolectomy secondary to mass concerning for adenocarcinoma. medicine consulted for medical management #Adenocarcinoma of the cecum | Hx of PE status post robotic assisted laparoscopic right hemicolectomy with Dr. Naidu on 08/13 Antibiotics/dispo planning/pain control per primary team Patient does have a history of PEdiscussed with surgery plan for initiation of chemical DVT prophylaxis on 08/14. Continue Lovenox #Postop pulmonary insufficiencycurrently on 2 L of Nasal cannula with concerns for snoring in PACU. Does not use a CPAP at baseline, reports she has refused sleep studies in the past. Baseline is room air Continue incentive spirometry Wean oxygen as able, goal greater than 92% - CXR shows Mild CHF and minimal atelectasis in the lung bases. Given Lasix 20 mg today.. #Hypertension Continue amlodipine Continue lisinopril #Tremorcontinue propranolol #Chronic eosinophilia Will continue daily allergy medicine As needed topical hydrocortisone during cream #HLDthis is diet controlled Admission and Anticipated Discharge Date Admission Date: August 13, 2025 Supervising Physician Co-Signing Physician Notes Attending attestation Pt seen and examined in concert with Dr. Short. In agreement with the documented findings as noted in the resident documentation with any exceptions or additions as noted here. Ongoing shortness of breath postoperatively with improving control on diminishing O2 requirement. Adherent to incentive spirometry therapy VS as noted. On examination, S1/S2 nl RRR no MCG. Bibasilar coarse breath sounds appreciated. Acute hypoxic respiratory failure - likely multifactorial in the setting of postoperative, habitus, h/o suspected DENI - continue O2 per protocol. Respiratory status improved following diuresis. Will continue to monitor. May need ambulatory O2 on discharge. Hypertension - continue amlodipine, lisinopril Else see resident documentation as noted. Subjective Patient lying on bed with the NC on 2L. POD #3 robotic right hemicolectomy with intracorporeal anastomosis for cecal cancer. Doing well, pain improving and controlled with medications. Bowel and bladder movement is normal . On liquid diet. Has been trying ambulating. Review of Systems Review of Systems: As per HPI. Physical Exam Constitutional: WD/WN, vitals as above + morbidly obese Respiratory: normal respiratory effort, lungs clear to auscultation Cardiovascular: RRR, no murmur, no edema Gastrointestinal (Abdomen): Inspection/Auscultation: + abdominal surgical incision (Healing well) Percussion/Palpation: + abdomen tender (Appropriately tender to palpation) and abdomen soft; no guarding and abdomen not rigid Results & Data Results & Data Vital Signs (Past 12 Hours) Vital Signs Temp Pulse Pulse Resp BP Pulse Ox O2 Del Method 08/16/25 12:50 36.7 C 67 18 135/83 96 Nasal Cannula 08/16/25 10:14 Nasal Cannula 08/16/25 09:05 64 08/16/25 08:25 36.6 C 65 18 148/84 H 94 Nasal Cannula 08/16/25 02:12 36.3 C L 59 L 18 120/77 94 Nasal Cannula O2 Flow Rate 08/16/25 12:50 08/16/25 10:14 08/16/25 09:05 08/16/25 08:25 08/16/25 02:12 2 Resident Activity Tracking Resident Involvement: Resident Care Provided Care Provided: Adult Hospital Medicine"
[2025-08-17] MEDS: SODIUM CHLORIDE 0.65% NA SOLN 45 ML (OCEAN) ONE (00:55)
[2025-08-17 07:04] LABS: Hematocrit (blood only) 37.7 % (37.0-47.0); Hemoglobin 12.7 g/dl (12.0-16.0); Immature Granulocytes # (auto) 0.02 K/uL (0.01-0.20); Immature Granulocytes % (auto) 0.4 %; Mean Corpuscular Hemoglobin 32.1 pg (25.0-34.0); Mean Corpuscular Volume 95.2 fL (80.0-100.0); Platelet Count 180 K/uL (130-400); RDW Standard Deviation 45.4 fL (36.4-46.3); Red Blood Count 3.96 M/uL (4.20-5.40); White Blood Count 5.42 K/ul (4.8-10.8)
[2025-08-17 07:34] LABS: Anion Gap 6.0 (3-11); Blood Urea Nitrogen 17.0 mg/dl (6-23); Calcium 8.5 mg/dl (8.6-10.3); Carbon Dioxide 28.0 mmol/L (21-32); Chloride 107.0 mmol/L (98-107); Creatinine Clr Calc Pharmacy 74.0 ml/min; Potassium 3.7 mmol/L (3.5-5.1); Sodium 141.0 mmol/L (136-145)
--- NOTE | 2025-08-17 11:17 | Surgery Progress Note ---
Date of Service August 17, 2025 Assessment & Plan (1) Acute postoperative pulmonary insufficiency: Plan: doing well from surgical standpoint weaning O2 appreciate medical care Admission and Anticipated Discharge Date Admission Date: August 13, 2025 Subjective doing well with diet and bowel function requiring O2 pain controlled ambulating Review of Systems Constitutional: no fever and no chills Respiratory: + dyspnea; no cough Cardiovascular: no chest pain Gastrointestinal: + abdominal pain; no nausea and no vomit ing Neurologic: no localized weakness Psychiatric: no behavioral changes Physical Exam Constitutional: WD/WN, vitals as above Respiratory: normal respiratory effort on O2 Cardiovascular: Rate/Rhythm: regular rate and regular rhythm Gastrointestinal (Abdomen): Inspection/Auscultation: abdomen normal to inspection and normal bowel sounds; abdomen not distended Percussion/Palpation: + abdomen tender and abdomen soft Skin: no rashes, warm and dry Results & Data Vital Signs (Past 12 Hours) Vital Signs Temp Pulse Pulse Resp BP Pulse Ox O2 Del Method 08/17/25 08:39 Nasal Cannula 08/17/25 07:56 36.5 C 64 24 146/84 H 96 Nasal Cannula 08/17/25 07:29 62 08/17/25 02:08 36.5 C 66 16 126/74 97 Nasal Cannula 08/17/25 00:35 60 O2 Flow Rate 08/17/25 08:39 08/17/25 07:56 4 08/17/25 07:29 08/17/25 02:08 2 08/17/25 00:35
--- NOTE | 2025-08-17 11:51 | XRay Report ---
XR chest 2V PA/lateral CLINICAL HISTORY: post operative hypoxia COMPARISON STUDY: 08/15/2025 FINDINGS: There is stable cardiomegaly with mild pulmonary vascular congestion. Stable mild elevation of the right hemidiaphragm. Stable mild stranding opacity in the lung bases. No lobar consolidation or pleural effusion seen. No pneumothorax. IMPRESSION: Stable mild CHF and stable minimal atelectasis in the lung bases. ACT 112: Negative or not required by law. Electronically signed by: Antonio Fowler M.D. 08/17/2025 11:50 AM
--- NOTE | 2025-08-17 14:31 | Hospitalist Progress Note ---
"Date of Service August 17, 2025 Assessment & Plan (1) Acute postoperative pulmonary insufficiency: (2) Adenocarcinoma of cecum: Plan Timmy is a 74F with a PMHx chronic eosinophilia, HLD managed with diet, GERD, tremors, hypertension and history of PE who presents to the hospital for elective hemicolectomy secondary to mass concerning for adenocarcinoma. medicine consulted for medical management #Adenocarcinoma of the cecum | Hx of PE status post robotic assisted laparoscopic right hemicolectomy with Dr. Naidu on 08/13 Antibiotics/dispo planning/pain control per primary team Patient does have a history of PEdiscussed with surgery plan for initiation of chemical DVT prophylaxis on 08/14. Continue Lovenox #Acute Hypoxic Respiratory Failurecurrently on 3 L of Nasal cannula with concerns for snoring in PACU. Does not use a CPAP at baseline, reports she has refused sleep studies in the past. - Likely multifactorial cause of Postoperative status, High bmi, suspected H/o sleep apnea. Baseline is room air Continue incentive spirometry Wean oxygen as able, goal greater than 92% -Repeat CXR shows stable Mild CHF and minimal atelectasis in the lung bases. Add one more dose of lasix 20 mg today.. - Echocardiogram tomorrow morning as last was done on around 2019. #Hypertension Continue amlodipine Continue lisinopril #Tremorcontinue propranolol #Chronic eosinophilia Will continue daily allergy medicine As needed topical hydrocortisone during cream #HLDthis is diet controlled Admission and Anticipated Discharge Date Admission Date: August 13, 2025 Supervising Physician Co-Signing Physician Notes Attending attestation Pt seen and examined in concert with Dr. Short. In agreement with the documented findings as noted in the resident documentation with any exceptions or additions as noted here. Persistent shortness of breath postoperatively with improving control on diminishing O2 requirement. Adherent to incentive spirometry therapy. Previous echocardiogram reported in ~2019 in [place] without interval need for management of SOB. VS as noted. On examination, S1/S2 nl RRR no MCG. Bibasilar coarse breath sounds appreciated. 2+ bilateral pitting edema to the midshin. Acute hypoxic respiratory failure - likely multifactorial in the setting of postoperative, habitus, h/o suspected DENI - continue O2 per protocol. Echocardiogram in AM to re-assess EF status with last study done remotely, ongoing requirement for diuresis to maintain O2 status. Continue diuresis today w/ furosemide 20mg IV and likely repeat in AM as well. Trend BMP daily. Hypertension - continue amlodipine, lisinopril Else see resident documentation as noted. Subjective Patient on NC on 3L. Increased oxygen need from yesterday. POD #4 robotic right hemicolectomy with intracorporeal anastomosis for cecal cancer. Doing well, pain improving and controlled with medications. Bowel and bladder movement is normal . On liquid diet. Has been trying ambulating. Review of Systems Review of Systems: As per HPI. Physical Exam Constitutional: WD/WN, vitals as above + morbidly obese Respiratory: Coarse breath sound on bibasilar area. Cardiovascular: RRR, no murmur, no edema Gastrointestinal (Abdomen): Inspection/Auscultation: + abdominal surgical incision (Healing well) Percussion/Palpation: + abdomen tender (Appropriately tender to palpation) and abdomen soft; no guarding and abdomen not rigid Results & Data Results & Data Vital Signs (Past 12 Hours) Vital Signs Temp Pulse Pulse Resp BP Pulse Ox O2 Del Method 08/17/25 11:50 36.7 C 66 20 160/91 H 97 Nasal Cannula 08/17/25 08:39 Nasal Cannula 08/17/25 07:56 36.5 C 64 24 146/84 H 96 Nasal Cannula 08/17/25 07:29 62 O2 Flow Rate 08/17/25 11:50 08/17/25 08:39 08/17/25 07:56 4 08/17/25 07:29 Resident Activity Tracking Resident Involvement: Resident Care Provided Care Provided: Adult Hospital Medicine"
[2025-08-17 15:36] VITALS: RESP 18
[2025-08-17] MEDS: FUROSEMIDE INJ 20 MG/2 ML VIAL IV ONE (16:33)
--- NOTE | 2025-08-17 17:10 | XCELERA ---
[id number]
[2025-08-18 06:58] LABS: Hematocrit (blood only) 41.6 % (37.0-47.0); Hemoglobin 14.2 g/dl (12.0-16.0); Immature Granulocytes # (auto) 0.05 K/uL (0.01-0.20); Immature Granulocytes % (auto) 0.8 %; Mean Corpuscular Hemoglobin 32.1 pg (25.0-34.0); Mean Corpuscular Volume 94.1 fL (80.0-100.0); Platelet Count 218 K/uL (130-400); RDW Standard Deviation 45.0 fL (36.4-46.3); Red Blood Count 4.42 M/uL (4.20-5.40); White Blood Count 6.43 K/ul (4.8-10.8)
[2025-08-18 07:31] LABS: Anion Gap 6.0 (3-11); Blood Urea Nitrogen 16.0 mg/dl (6-23); Calcium 8.7 mg/dl (8.6-10.3); Carbon Dioxide 29.0 mmol/L (21-32); Chloride 107.0 mmol/L (98-107); Creatinine Clr Calc Pharmacy 65.6 ml/min; Potassium 4.2 mmol/L (3.5-5.1); Sodium 142.0 mmol/L (136-145)
[2025-08-18] MEDS: ONDANSETRON INJ 2 MG/ML 2 ML VIAL IV PRN (08:52)
--- NOTE | 2025-08-18 12:23 | Surgery Progress Note ---
Date of Service August 18, 2025 Assessment & Plan (1) H/O right hemicolectomy: Plan: POD #5 robotic right hemicolectomy, overall doing well. She was on room air at the time of our rounding. Continue medical management and try to keep her on room air, if not we will need home oxygen consult She has not had much of an appetite today, therefore we will continue to follow. Clinically she appears to have good return of bowel function we will keep her on a low fiber diet. Potential discharge tomorrow Her path results did come back and showed T3 N2b cecal adenocarcinoma, 11 out of 16 lymph nodes positive. Will review this with her tomorrow as this returned after morning rounds. She will need oncology follow-up as an outpatient with PET scan and consideration of chemotherapy Ambulation, I-S, out of bed to chair[facility]rec[facility] hospitalist assistance with this patient (2) Acute postoperative pulmonary insufficiency: (3) Adenocarcinoma of cecum: Admission and Anticipated Discharge Date Admission Date: August 13, 2025 Subjective POD #5 robotic right hemicolectomy for cecal adenocarcinoma. Did well over the weekend, tolerated a low fiber diet, had multiple loose bowel movements. She did have a oxygen requirement and an echocardiogram was performed for which she gave her a small injection. Since then she has had some nausea and has not felt very hungry. She continues to pass flatus but has not had a bowel movement since yesterday. She has been ambulating, pain is well-controlled. Physical Exam Constitutional: WD/WN, vitals as above + obese Respiratory: normal respiratory effort, lungs clear to auscultation Off O2 Cardiovascular: RRR, no murmur, no edema Gastrointestinal (Abdomen): normal bowel sounds, soft, nontender, no hepatosplenomegaly Inspection/Auscultation: + abdominal wall ecchymosis (Around extraction site incision) and + abdominal surgical incision (No infection) Results & Data Vital Signs (Past 12 Hours) Vital Signs Temp Pulse Pulse Pulse Pulse Pulse Resp 08/18/25 11:35 36.8 C 67 18 08/18/25 07:58 85 90 71 08/18/25 07:06 63 08/18/25 02:49 36.8 C 65 18 Resp Resp Resp BP BP Pulse Ox Pulse Ox 08/18/25 11:35 157/80 H 96 08/18/25 07:58 20 20 18 94 11/03/25 07:06 08/18/25 02:49 147/74 H 94 Pulse Ox Pulse Ox O2 Del Method O2 Flow Rate O2 Flow Rate 08/18/25 11:35 Nasal Cannula 2 08/18/25 07:58 87 L 90 2 08/18/25 07:06 08/18/25 02:49 Room Air Laboratory Results Laboratory Results - last 24 hr 08/18/25 06:08 WBC 6.43 RBC 4.42 Hgb 14.2 Hct 41.6 MCV 94.1 MCH 32.1 MCHC 34.1 RDW Std Deviation 45.0 RDW Coeff of Parviz 13.0 Plt Count 218 MPV 12.6 H Immature Gran % (Auto) 0.8 Neut % (Auto) 53.5 Lymph % (Auto) 23.6 Swain % (Auto) 12.6 Eos % (Auto) 8.9 Baso % (Auto) 0.6 Neut # (Auto) 3.44 Lymph # (Auto) 1.52 Swain # (Auto) 0.81 H Eos # (Auto) 0.57 H Baso # (Auto) 0.04 Immature Gran # (Auto) 0.05 Sodium 142 Potassium 4.2 Chloride 107 Carbon Dioxide 29 Anion Gap 6 BUN 16 Creatinine 0.88 Est Cr Clr Drug Dosing 65.6 eGFR 68.49 Fasting Glucose 116 H Calcium 8.7 Diagnostic Findings FINAL DIAGNOSIS Colon, right, hemicolectomy: - Adenocarcinoma, moderately-differentiated - See synoptic summary for additional information at 1244. Gross Description RIGHT HEMICOLECTOMY The specimen is received in a container labeled right hemicolectomy with the patient name. The specimen consists of a right hemicolectomy which includes portion of terminal ileum, cecum with attached appendix, ascending and presumed portion of transverse colon, all with attached fatty tissue. The segment of large intestine measures 32.5 cm in length and ranges from 2 to 5 cm in diameter. The serosal surface, where visible, is pink to gould and smooth. On opening the great majority of the mucosa shows a normal to slightly attenuated rugal pattern. The majority of the cecum consists of an ulcerated mucosal mass which measures 3 x 3 x 1.5 cm. Sectioning through the mass reveals it to focally involve the full-thickness of the bowel wall, without obvious invasion of the adjacent fatty tissue. The mass does no obviously appear to extend to the free serosal surface. The mass closely approaches, though does not appear to involve the appendiceal orifice. It is 13 cm from the proximal resection margin and 30.5 cm from the distal. The mass is 3.5 cm from what appears to be the nearest mesenteric margin though a firm, mottled lymph node lies directly adjacent to the margin. The remaining large intestine mucosa is unremarkable. The appendix measures 5.8 cm in length and ranges from 0.4 to 0.8 cm in diameter. The serosal surface is dull pink to gould and smooth. Sectioning reveals a dull gould to slightly yellowish, rubbery wall and a lumen which ranges from indistinguishable to 0.1 cm in diameter. The portion of terminal ileum measures 13 cm in length and 2 cm in diameter. No obvious abnormality is noted. Sectioning through the attached fatty tissue reveals multiple lymph nodes, ranging from 0.2 to 1.5 cm in greatest dimension. Many have a guerrero to gould, firm cut surface. Video Control Operator sections are submitted in 14 cassettes as follows: A1, en face proximal resection margin; A2, en face distal resection margin; A3, perpendicular mesenteric resection margin; A4 through A6, sections of mass; A7, random mucosa; A8, appendix; A9 through A14, lymph nodes. Synoptic Report Procedure: Right hemicolectomy Tumor Site: Cecum Histologic Type: Adenocarcinoma Histologic Grade: G2, moderately differentiated Tumor Size: 3 x 3 x 1.5 cm Surgical Pathology Report Page 1 of 2 [facility] Surgical Pathology Report Name: AIDAN MARCOS : 1950 Case #: [id number] Continued Multiple Primary Sites: Not applicable (no additional primary site(s) present) Tumor Extent: Invades through muscularis propria into the pericolic tissue Macroscopic Tumor Perforation: Not identified Lymphatic and/or Vascular Invasion: Small vessel: lymphatic Perineural Invasion: Not identified Tumor Budding Score: Cannot be determined Treatment Effect: No known presurgical therapy Margin Status for Invasive Carcinoma: All margins negative for invasive carcinoma Margin Status for Non-invasive Tumor: All margins negative for high-grade dysplasia/ intramucosal carcinoma and low-grade dysplasia Regional Lymph Node Status: Regional lymph nodes present; Tumor present in regional lymph node(s) Number of Lymph Nodes with Tumor: 11 Number of Lymph Nodes Examined: 16 Tumor Deposits: Present Number of Tumor Deposits: 2 Pathologic Stage Classification: [id number] Comment: If additional studies are requested then block A6 should be selected for testing. PG Care Time/CCT Total # of Minutes Spent Total Time Spent with Patient: Total time spent is greater than 50% in coordination of care (as documented) at patient's floor/unit and/or counseling patient: Coding Level of Care Code 27671 Post Operative Follow-Up Diagnoses H/O right hemicolectomy Z90.49 Acute postoperative pulmonary insufficiency J95.2 Adenocarcinoma of cecum C18.0
--- NOTE | 2025-08-18 12:44 | Discharge Summary ---
Date of Service August 18, 2025 Admission HPI Per Admitting Provider Here for surgery. 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 She has been having right lower quadrant pain over the past few years. During the process she had imaging performed and showed a enlarged uterus and underwent hysterectomy and salpingo-oophorectomy. She states that there was 2 tiny cancerous cells, but did not require any further treatment. She continued to have the symptoms. She underwent a colonoscopy for the first time in a little over 10 years at [facility] and was noted to have an ulcerating tumor in her cecum. Biopsies were taken and revealed invasive adenocarcinoma. Besides the laparoscopic assisted hysterectomy, she has had a laparoscopic cholecystectomy, and 2 C-sections, no other abdominal surgeries. She has had a partial thyroidectomy. 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 She did have 2 small pulmonary emboli after her thyroid surgery and was on Coumadin for a period. She also had a [place] filter that was later removed. She does not note any changes in her bowel habits or blood in her stool. She does have frequent loose stools, usually related to gluten intake or dairy. Her pain appears more positional. Preop risk assessment from PCP completed. She had a CT scan of the chest abdomen pelvis which showed cecal thickening and some lymphadenopathy but no evidence of obvious metastatic disease. Her CEA was 2.52, slightly elevated. No other changes since last visit. Discharge Exam Constitutional WD/WN, vitals as above + morbidly obese Respiratory normal respiratory effort, lungs clear to auscultation Cardiovascular RRR, no murmur, no edema Gastrointestinal (Abdomen) Inspection/Auscultation: + abdominal surgical incision (Healing well) Percussion/Palpation: + abdomen tender (Appropriately tender to palpation) and abdomen soft; no guarding and abdomen not rigid Discharge Data Allergies Allergy/AdvReac Type Severity Reaction Status Date / Time amoxicillin Allergy Mild Hives Verified 08/13/25 08:07 azithromycin Allergy Mild Hives Verified 08/13/25 08:07 benzonatate Allergy Mild Vomiting Verified 08/13/25 08:07 cefadroxil [From Duricef] Allergy Mild Hives Verified 08/13/25 08:07 cefazolin [From Ancef] Allergy Mild Hives Verified 08/13/25 08:07 diclofenac [From Cataflam] Allergy Mild Hives Verified 08/13/25 08:07 famotidine Allergy Mild Hypertensio Verified 08/13/25 08:07 n lactose Allergy Mild Diarrhea Verified 08/13/25 08:07 meperidine [From Demerol] Allergy Mild Hives Verified 08/13/25 08:07 sufentanil [From Sufenta] Allergy Mild Hives Verified 08/13/25 08:07 sulfamethoxazole Allergy Mild Hives Verified 08/13/25 08:07 [From Septra] trimethoprim [From Septra] Allergy Mild Hives Verified 08/13/25 08:07 wheat Allergy Mild Diarrhea Verified 08/13/25 08:07 brianna Allergy Mild Diarrhea Uncoded 08/13/25 08:08 ivp dye Allergy Mild Hives Uncoded 08/13/25 08:08 peteracillin Allergy Mild Hives Uncoded 08/13/25 08:08 Consultations 08/13/25 16:16 Consult Hospitalist Routine 08/15/25 09:20 Consult Family Medicine [Consult Internal Medicine] Routine Procedures Performed Operation Date: 08/13/25 09:10 Actual Procedures p Robotic Assisted Laparoscopic Right Hemicolectomy(Not Applicable) - Antonio Naidu DO, FACS Hospital Course (1) Acute postoperative pulmonary insufficiency: (2) Adenocarcinoma of cecum: Plan Timmy is a 74F with a PMHx chronic eosinophilia, HLD managed with diet, GERD, tremors, hypertension and history of PE who presents to the hospital for elective hemicolectomy secondary to mass concerning for adenocarcinoma. medicine consulted for medical management #Adenocarcinoma of the cecum | Hx of PE status post robotic assisted laparoscopic right hemicolectomy with Dr. Naidu on 08/13 Antibiotics/dispo planning/pain control per primary team Patient does have a history of PEdiscussed with surgery plan for initiation of chemical DVT prophylaxis on 08/14. Continue Lovenox #Acute Hypoxic Respiratory Failurecurrently on 3 L of Nasal cannula with concerns for snoring in PACU. Does not use a CPAP at baseline, reports she has refused sleep studies in the past. - Likely multifactorial cause of Postoperative status, High bmi, suspected H/o sleep apnea. Baseline is room air Continue incentive spirometry Wean oxygen as able, goal greater than 92% -Repeat CXR shows stable Mild CHF and minimal atelectasis in the lung bases. Add one more dose of lasix 20 mg today.. - Echocardiogram tomorrow morning as last was done on around 2019. #Hypertension Continue amlodipine Continue lisinopril #Tremorcontinue propranolol #Chronic eosinophilia Will continue daily allergy medicine As needed topical hydrocortisone during cream #HLDthis is diet controlled Total Time Total Time Spent Total Time Spent (In Minutes): >30 Discharge Plan Discharge Items Patient Disposition: Home - Self-Care Reason For Visit: COLON CANCER, STATUS POST RIGH HEMICOLECTOMY Discharge Diagnosis: robotic partial colectomy Activity: Per Instructions section Lifting: No more than 10 pounds Bathing Comment: may can shower. no soaking in hot tubs, bath tubs, pools x 2 weeks Exercise/Sports: Wait until after follow-up appointment Driving/Machine Use: no driving while on narcotics for pain Non-emergency contact: Primary Care Provider and Surgeon Call non-emergency contact if: you have any medication questions, your pain is n ot controlled, you have a fever, your temperature is above 101.5, your wound has increased redness, your wound has increased drainage and your wound pain has increased Follow-up/Referrals: Antonio Naidu DO, FACS [Physician] - (please call to schedule follow up in the office in 2 weeks ) Danisha Crenshaw D.O. [Primary Care Provider] - (Please make a follow-up appointment with your primary care provider in 1-2 weeks.) Diet: Low Fiber Addtl Attending Provider Instructions: SPECIAL CARE INSTRUCTIONS: * You have skin glue over your incisions called dermabond. you may shower with this on. It will tend to dissolve and fall off within a couple weeks. Do not pick at the skin glue * You may shower 08/14. NO soaking in pools or baths for 2 weeks * No lifting greater than 10lbs. No strenuous exercise until cleared by surgeon. Light walking is accepted. * No driving while taking narcotic pain medication; wait at least 3 days * No drinking alcohol while taking narcotic pain medication * May use Ibuprofen/Tylenol over the counter for pain as tolerated. Do not exceed 3grams of Tylenol per 24 hours * Expect some swelling and bruising. * Diet- low fiber diet Call your doctor if: * Temperature above 101 degrees, nausea/vomiting, fever/chills * Pain not relieved by pain medicine ordered * There is increased drainage or redness from any incision * You have any unanswered questions or concerns [phone]. FOLLOW UP VISIT: If not already scheduled, please call the office for a follow-up visit. Office [address] [employer] Provider Instructions: You were consulted by the surgery team for the medical team because of shortness of breath you had after surgery. With regards to your Shortness of breath, we kept you on oxygen on nasal cannula and also did the chest xray which showed some post operative collapse of your air sacs on your lungs and some fluid too. For the fluid in your lungs, we treated you with "water pill" to pass the extra fluid on your body and we recommended spirometry use for the post surgery changes in your lung.Also we did ultrasound of your heart which was not concerning either. But we also expect some part of role from your body habitus and suspected sleep apnea playing role on your breathing issues. So, we strongly recommend you to follow up with your primary physician to schedule you for home sleep studies to evaluate if you have sleep apnea because it results into complications if not treated. Also, make sure you follow up with the surgery team as well. Thank you for choosing [facility]. Pending Studies at Discharge: Yes Studies:: surgical pathology Stand-Alone Forms: My [facility], Smoking Cessation Medications and DC Order Prescriptions: New oxycodone 5 mg tablet 5 - 10 mg PO .[id number] PRN (Reason: pain, for initial therapy, max 6 tabs per day) Qty: 15 0RF Continued amlodipine 10 mg tablet 10 mg PO HS cyanocobalamin (vitamin B-12) 1,000 mcg tablet 1,000 mcg PO QAM cinnamon bark [Cinnamon] 500 mg capsule 500 mg PO QAM lisinopril 40 mg tablet 40 mg PO QAM lutein 10 mg tablet 10 mg PO QPM Rx Instructions: give with meal/snack multivitamin Tablet 1 tab PO DAILY niacin 500 mg tablet 500 mg PO QAM propranolol 20 mg tablet 20 mg PO QPM pantoprazole [Protonix] 40 mg tablet,delayed release (DR/EC) 40 mg PO QAM cholecalciferol (vitamin D3) 50 mcg (2,000 unit) capsule 50 mcg PO QAM zinc gluconate 30 mg tablet 30 mg PO QAM Discontinued neomycin 500 mg tablet 500 mg PO ONCE Qty: 3 0RF Rx Instructions: Take 1 tablet at 1:00pm, 2:00 pm, and 7:00pm metronidazole 500 mg tablet 500 mg PO ONCE Qty: 3 0RF Rx Instructions: Take one tablet at 1:00pm, 2:00pm, and 7:00pm Discharge Orders: Discharge Order (Routine); Ordered 08/18/25 Ordered By: Loretta Short Admission Data Admit Date/Time: 08/13/25 09:09 Attending Provider: Antonio Naidu Admit Provider: Antonio Naidu Primary Care Provider: Danisha Crenshaw Other Providers: Maryellen Singh Christopher R. Other Interventions: Discharge Summary Assessment (RN) Last Done: 08/18/25 16:49 Supervising Physician Co-Signing Physician Notes I personally examined the patient and verified all simeon points of history and exam, discussed case, and agree with decision making with Dr Short Feeling better. Off of oxygen. Vitals noted, in general she is awake and alert pleasant no distress. HEENT normocephalic atraumatic mucous membranes moist. Lungs with overall clear, no rales rhonchi or wheezes no accessory muscle use good effort. Acute hypoxic respiratory failure - Improved. Multifactorialatelectasisincentive spirometry. Acute HFpEFno evidence of chronicityalmost certainly circumstantialimproved with diuresis, and with clear lungs no clear role for further diuretics. Echo reassuring. OSAexplained extensively. She expressed good understanding. Outpatient sleep study and further management per PCP. Hypertension - continue amlodipine, lisinopril Else see resident documentation as noted.
[2025-08-18 16:26] VITALS: TEMP 97.5; O2SAT 94
[2025-08-18 16:52] VITALS: BP 147/74
--- NOTE | 2025-08-18 17:34 | Billing Data ---
Date of Service August 18, 2025 Coding Level of Care Code 10840 SUB INP/OBS CARE
--- NOTE | 2025-08-18 17:47 | Hospitalist Progress Note ---
"Date of Service August 18, 2025 Assessment & Plan (1) Acute postoperative pulmonary insufficiency: (2) Adenocarcinoma of cecum: (3) Abdominal pain: (4) Hx pulmonary embolism: (5) Hx of deep venous thrombosis: (6) HLD (hyperlipidemia): (7) HTN (hypertension): Plan Timmy is a 74F with a PMHx chronic eosinophilia, HLD managed with diet, GERD, tremors, hypertension and history of PE who presents to the hospital for elective hemicolectomy secondary to mass concerning for adenocarcinoma. medicine consulted for medical management #Adenocarcinoma of the cecum | Hx of PE status post robotic assisted laparoscopic right hemicolectomy with Dr. Naidu on 08/13 Antibiotics/dispo planning/pain control per primary team Patient does have a history of PEdiscussed with surgery plan for initiation of chemical DVT prophylaxis on 08/14. Continue Lovenox #Acute Hypoxic Respiratory Failurecurrently on 2L of Nasal cannula on ambulating and on room air on resting. Concerns for snoring in PACU. Does not use a CPAP at baseline, reports she has refused sleep studies in the past. - Likely multifactorial cause of Postoperative status, High bmi, suspected H/o sleep apnea. Baseline is room air Continue incentive spirometry Wean oxygen as able, goal greater than 92% -Repeat CXR shows stable Mild CHF and minimal atelectasis in the lung bases. Add one more dose of lasix 20 mg today.. - Echocardiogram :On 08/17 shows EF 60-65% and normal left ventricular size and function.No LVH. - Continue Home oxygen with 2 steps evaluation done with 2L on ambulating and on room air on rest. #Hypertension Continue amlodipine Continue lisinopril #Tremorcontinue propranolol #Chronic eosinophilia Will continue daily allergy medicine As needed topical hydrocortisone during cream #HLDthis is diet controlled Hospitalist team will sign off at this time , please do not hesitate to contact us if we can be of further assistance. Admission and Anticipated Discharge Date Admission Date: August 13, 2025 Subjective Patient on room air on rest and 2L on ambulating. POD #5 robotic right hemicolectomy with intracorporeal anastomosis for cecal cancer. Doing well, pain improving and controlled with medications. Bowel and bladder movement is normal . Review of Systems Review of Systems: As per HPI. Physical Exam Constitutional: WD/WN, vitals as above + obese Respiratory: normal respiratory effort, lungs clear to auscultation Off O2 Cardiovascular: RRR, no murmur, no edema Gastrointestinal (Abdomen): normal bowel sounds, soft, nontender, no hepatosplenomegaly Inspection/Auscultation: + abdominal wall ecchymosis (Around extraction site incision) and + abdominal surgical incision (No infection) Results & Data Results & Data Vital Signs (Past 12 Hours) Vital Signs Temp Pulse Pulse Pulse Pulse Pulse Resp 08/18/25 16:49 36.4 C L 65 18 08/18/25 16:24 36.4 C L 65 18 08/18/25 11:35 36.8 C 67 18 08/18/25 07:58 85 90 71 08/18/25 07:06 63 08/18/25 06:00 Resp Resp Resp BP BP Pulse Ox Pulse Ox 08/18/25 16:49 131/76 147/74 H 94 08/18/25 16:24 131/76 94 08/18/25 11:35 157/80 H 96 08/18/25 07:58 20 20 18 94 08/18/25 07:06 08/18/25 06:00 Pulse Ox Pulse Ox O2 Del Method O2 Flow Rate O2 Flow Rate 08/18/25 16:49 08/18/25 16:24 Nasal Cannula 2 08/18/25 11:35 Nasal Cannula 2 08/18/25 07:58 87 L 90 2 08/18/25 07:06 08/18/25 06:00 Nasal Cannula Resident Activity Tracking Resident Involvement: Resident Care Provided Care Provided: Adult Hospital Medicine"
[2025-08-18 17:56] VITALS: PULSE 73
== END 2025-08-18 18:11 | disposition home or self-care (01) | DRG 329 ==
LOC: ASU 07:45 → SUATTDRO 09:09 → 2N 09:09